=== PATIENT | male | born 1995 | race Asian ===

== ENCOUNTER 2018-06-21 20:26 | Emergency (ER) | payer MEDICAID, OTHER ==
[~2018-06-21] VITALS: Ht 185.4 cm; Wt 70.3 kg
[2018-06-21 20:34] VITALS: BP 132/70
[2018-06-21] MEDS ORDERED: TDAP [DIPH/PERTUSSIS/TET] 0.5 ML VIAL IM ONE ×2 (20:47→21:00)
--- NOTE | 2018-06-21 20:54 | NUR ---
ABRASION ON THE ABDOMEN CLEANSED WITH NS, BACITRACIN APPLIED.
== END 2018-06-21 20:55 | disposition home or self-care (01) ==
LOC: ER 20:26
DX: S30.811A Abrasion of abdominal wall, initial encounter (principal); F12.90 Cannabis use, unspecified, uncomplicated; W54.1XXA Struck by dog, initial encounter; Y93.51 Activity, roller skating (inline) and skateboarding; Y92.331 Roller skating rink as the place of occurrence of the external cause; Y99.8 Other external cause status
CPT/HCPCS: 90471; 90715; 99283; A4606; Z7610